=== PATIENT | female | born 1970 | race Caucasian/White ===

== ENCOUNTER 2020-12-07 13:45 | Outpatient (CLI) | payer OTHER | END 2020-12-07 13:51 | disposition home or self-care (01) | LOC: RAD 13:45 | DX: M43.8X5 Other specified deforming dorsopathies, thoracolumbar region (principal); M54.5 Low back pain; M54.2 Cervicalgia ==

== ENCOUNTER 2021-08-14 08:22 | Outpatient (CLI) | payer OTHER | END 2021-08-14 08:28 | disposition home or self-care (01) | LOC: NUCLEAR 08:22 | DX: M79.605 Pain in left leg (principal) ==

== ENCOUNTER 2021-08-14 09:36 | Outpatient (CLI) | payer OTHER | END 2021-08-14 10:37 | disposition home or self-care (01) | LOC: MAMO-SONO 09:36 | DX: M06.9 Rheumatoid arthritis, unspecified (principal); D64.89 Other specified anemias; R70.0 Elevated erythrocyte sedimentation rate; R53.1 Weakness; M89.9 Disorder of bone, unspecified; E55.9 Vitamin D deficiency, unspecified; M62.838 Other muscle spasm; N64.4 Mastodynia; K29.60 Other gastritis without bleeding; E78.49 Other hyperlipidemia; F41.1 Generalized anxiety disorder; E04.1 Nontoxic single thyroid nodule; M79.605 Pain in left leg; M25.511 Pain in right shoulder; J45.30 Mild persistent asthma, uncomplicated; J01.00 Acute maxillary sinusitis, unspecified; J01.80 Other acute sinusitis; M54.50 Low back pain, unspecified; M25.562 Pain in left knee; M25.561 Pain in right knee ==

== ENCOUNTER 2024-01-06 11:18 | Inpatient (IN) | payer OTHER ==
[~2024-01-06] VITALS: Ht 157.5 cm; Wt 54.4 kg
[2024-01-06] MEDS ORDERED: IRON236 MG PO (12:32)
[2024-01-06] MEDS ORDERED: VOLTAREN ARTHRI20 GM (12:32)
[2024-01-06] MEDS ORDERED: ZYRTEC10 M3 PO (12:32)
[2024-01-11] MEDS ORDERED: CEFAZOLIN SODIUM 1,000 MG VIAL ONE (09:04)
[2024-01-11] MEDS ORDERED: POVIDONE-IODINE 118 ML BOTT TOP ONE (12:23)
[2024-01-11] MEDS ORDERED: SURGIFLO APPLICATOR 1 EACH APPL TOP ONE (14:14)
[2024-01-11] MEDS ORDERED: HEMOSTATIC MATRIX 1 KIT KIT TOP ONE (14:14)
[2024-01-11] MEDS ORDERED: ONDANSETRON HCL 2 MG/ML VIAL IV PRN (15:00)
[2024-01-11] MEDS ORDERED: MEPERIDINE HCL/PF 50 MG/ML VIAL IV PRN (15:00)
[2024-01-11] MEDS ORDERED: CEFAZOLIN SODIUM 1,000 MG VIAL IV SCH (18:00)
[2024-01-11 18:11] LABS: URINE APPEARANCE Clear; URINE BILIRRUBIN Negative (NEGATIVE); URINE BLOOD Negative; URINE COLOR Yellow; URINE GLUCOSE Negative (NEGATIVE); URINE LEUKOCYTE Negative; URINE NITRATE Negative; URINE PROTEIN Negative (NEGATIVE); URINE UROBILINOGEN 0.2 E.U./dl
[2024-01-11 18:12] LABS: URINE BACTERIA 90.6 uL (0.0-1933); URINE EPITHELIAL CELLS 4.4 uL (0.0-38.8); URINE RBC 7.9 uL (0.0-20.8); URINE WBC 10.6 uL (0.0-23.2)
[2024-01-11 18:20] LABS: URINE CAST 1.06 uL (0.0-1.40); URINE KETONE 40 (NEGATIVE)
[2024-01-11 18:35] LABS: ALBUMIN 2.5 gm/dL (3.4-5.0); BILIRUBIN TOTAL 0.28 mg/dL (0.3-1.2); CALCIUM 8.7 mg/dL (8.5-10.1); CREATININE SERUM 0.53 mg/dL (0.55-1.02); GFR 120.67; GLOBULINA 4.4 G/DL (2.4-3.5); POTASSIUM 4.4 mEq/L (3.5-5.1); TOTAL PROTEIN 6.9 gm/dL (6.4-8.2)
[2024-01-11 18:36] LABS: HEMATOCRIT 27.8 % (36.0-45.00); HEMOGLOBIN 9.2 g/dL (12.0-15.00); MEAN CELL VOLUME 73.5 fL (80.00-100.00); MEAN CORPUSCULAR HEMOGLOBIN 24.3 pg (27.00-32.0); MEAN CORPUSCULAR HGB CONC 33.1 g/dl (32.0-36.0); PLATELET COUNT 342 K/uL (150-450); RED BLOOD COUNT 3.78 M/uL (4.00-6.00)
[2024-01-12 06:46] LABS: HEMATOCRIT 26.2 % (36.0-45.00); MEAN CELL VOLUME 72.9 fL (80.00-100.00); MEAN CORPUSCULAR HGB CONC 32.8 g/dl (32.0-36.0); PLATELET COUNT 291 K/uL (150-450); RED BLOOD COUNT 3.59 M/uL (4.00-6.00)
[2024-01-12 06:50] LABS: HEMOGLOBIN 8.6 g/dL (12.0-15.00); MEAN CORPUSCULAR HEMOGLOBIN 23.9 pg (27.00-32.0)
[2024-01-12] MEDS ORDERED: SIMETHICONE 125 MG CAPSULE PO SCH ×2 (07:00→17:00)
[2024-01-12] MEDS ORDERED: GABAPENTIN 300 MG CAPSULE PO SCH ×2 (07:00→17:00)
[2024-01-12] MEDS ORDERED: IBUprofen 800 MG TABLET PO SCH (08:00)
[2024-01-12 10:20] LABS: HEMATOCRIT 28.5 % (36.0-45.00); HEMOGLOBIN 9.2 g/dL (12.0-15.00); MEAN CELL VOLUME 74.3 fL (80.00-100.00); MEAN CORPUSCULAR HGB CONC 32.3 g/dl (32.0-36.0); PLATELET COUNT 325 K/uL (150-450); RED BLOOD COUNT 3.83 M/uL (4.00-6.00)
[2024-01-12 10:22] LABS: RED CELL DISTRIBUTION WIDTH 31.8 % (11.5-14.5)
[2024-01-12] MEDS ORDERED: SOD FERRIC GLUC COMPLX/SUCROSE 125 MG in 0.9 % SODIUM CHLORIDE 100 ML IV SCH (10:26)
[2024-01-12] MEDS ORDERED: GABAPENTIN300 MG PO (16:29)
[2024-01-12] MEDS ORDERED: IBUPROFEN800 MG PO (16:30)
[2024-01-12] MEDS ORDERED: LEVSIN/SL0.125 MG SL (16:31)
[2024-01-12] MEDS ORDERED: CIPRO500 MG PO (16:31)
[2024-01-12] MEDS ORDERED: MAXFE CAPLET1 EAC1 PO (16:33)
== END 2024-01-12 16:42 | disposition home or self-care (01) | DRG 743 ==
LOC: O/R 01-11 07:17 → OB/GYN 01-11 11:45
PROVIDERS: ADMIT Obstetrics & Gynecology Gynecology; ATTEND Obstetrics & Gynecology Gynecology
PROC: 0UT74ZZ Resection of Bilateral Fallopian Tubes, Percutaneous Endoscopic Approach (ICD-10-PCS; 2024-01-11)
PROC: 0UT94ZZ Resection of Uterus, Percutaneous Endoscopic Approach (ICD-10-PCS; principal; 2024-01-11 11:45)
DX: D25.9 Leiomyoma of uterus, unspecified (principal); N92.0 Excessive and frequent menstruation with regular cycle; Z20.822 Contact with and (suspected) exposure to COVID-19